=== PATIENT | male | born 2000 | race Caucasian/White ===

== ENCOUNTER 2023-09-11 12:43 | Outpatient (OUT) | payer BC, SELFPAY ==
[2023-09-11 13:19] LABS: Basophils Absolute Auto 0.1 10^3/uL (0.0-0.1); Basophils Percent Auto 1.2 % (0.2-2.0); Eosinophils Absolute Auto 0.1 10^3/uL (0.0-0.7); Eosinophils Percent Auto 1.3 % (0.9-7.0); Hematocrit 46.9 % (42.0-54.0); Hemoglobin 15.5 g/dL (14.0-18.0); Immature Granulocytes Abs Auto 0.02 10^3/uL (0.00-0.03); Immature Granulocytes Pct Auto 0.3 % (0.0-0.5); Lymphocytes Absolute Auto 2.4 10^3/uL (1.2-3.8); Lymphocytes Percent Auto 31.2 % (20.5-60.0); Mean Corpuscular Hemoglobin 28.5 pg (25.9-34.0); Mean Corpuscular Volume 86.4 fL (80.0-94.0); Mean Platelet Volume 12.2 fL (9.5-13.5); Monocytes Absolute Auto 0.5 10^3/uL (0.3-0.8); Neutrophils Absolute Auto 4.6 10^3/uL (1.4-6.5); Platelet Count 185 10^3/uL (150-450); Red Blood Count 5.43 10^6/uL (4.70-6.10); Red Cell Distribution Width 12.6 % (11.0-15.0); White Blood Count 7.7 10^3/uL (4.0-11.0)
[2023-09-11 13:43] LABS: Alanine Aminotransferase 26 U/L (16-63); Albumin Globulin Ratio 1.2; Alkaline Phosphatase 78 U/L (46-116); Anion Gap 14.7; Aspartate Amino Transferase 20 U/L (15-37); BUN Creatinine Ratio 17.1; Bilirubin Direct 0.1 mg/dL (0.0-0.2); Bilirubin Total 0.4 mg/dL (0.2-1.0); Calcium 8.8 mg/dL (8.5-10.1); Carbon Dioxide 28.3 mmol/L (21.0-32.0); Chloride 103 mmol/L (98-107); Chol HDL Ratio 2.7; Cholesterol 153 mg/dL (<=200); Estimated GFR (African America >60 (>=60); Estimated GFR (Non-African Ame >60 (>=60); Globulin 3.3 g/dL; Glucose 113 mg/dL (74-106); HDL Cholesterol 57 mg/dL (40-60); Sodium 142 mmol/L (136-145); Thyroid Stimulating Hormone 1.208 uIU/mL (0.358-3.740); Total Protein 7.3 g/dL (6.4-8.2); Triglycerides 85 mg/dL (<=150)
[2023-09-11 16:21] LABS: Estimated Average Glucose 103 mg/dL; Glycohemoglobin A1C 5.2 % (4.5-6.2)
[2023-09-12 04:07] LABS: Testosterone 295 ng/dL (264-916)
== END 2023-09-11 12:44 | disposition home or self-care (01) ==
LOC: LAB 12:50
PROVIDERS: Family Provider Physician Assistant; PCP Family Medicine; Visit Provider Family Medicine
DX: Z00.00 Encounter for general adult medical examination without abnormal findings (principal)
CPT/HCPCS: 36415; 80048; 80061; 80076; 83036; 84403; 84443; 85025

== ENCOUNTER 2024-05-03 15:55 | Outpatient (OUT) | payer BC, SELFPAY ==
--- NOTE | 2024-05-03 | XR_ITS ---
[address] [address] Patient Name: JOE CALIXTO MRN: [id number] date: 2000 Sex: M Assigned Patient Location: [facility] Current Patient Location: Accession/Order Number: [id number] Exam Date: 05/03/2024 16:15 Report Date: 05/04/2024 07:59 At the request of: CAM MERINO Procedure: XR clavicle RT PROCEDURE: XR clavicle RT, XR shoulder RT min 2V COMPARISON: None. HISTORY: acute pain of right shoulder FINDINGS: BONES:No fracture, acute abnormality, or significant arthropathy. SOFT TISSUES:Negative. No visible soft tissue swelling. EFFUSION:None visible. OTHER: Negative. XR/XR clavicle RT IMPRESSION: No acute abnormality of the clavicle or shoulder Electronically authenticated by: ASH LYNCH Date: 05/04/2024 07:59
--- NOTE | 2024-05-03 | XR_ITS ---
The [address] [address] Patient Name: JOE CALIXTO MRN: [id number] date: 2000 Sex: M Assigned Patient Location: [facility] Current Patient Location: Accession/Order Number: [id number] Exam Date: 05/03/2024 16:15 Report Date: 05/04/2024 07:59 At the request of: CAM MERINO Procedure: XR shoulder RT min 2V PROCEDURE: XR clavicle RT, XR shoulder RT min 2V COMPARISON: None. HISTORY: acute pain of right shoulder FINDINGS: BONES:No fracture, acute abnormality, or significant arthropathy. SOFT TISSUES:Negative. No visible soft tissue swelling. EFFUSION:None visible. OTHER: Negative. XR/XR shoulder RT min 2V IMPRESSION: No acute abnormality of the clavicle or shoulder Electronically authenticated by: ASH LYNCH Date: 05/04/2024 07:59
== END 2024-05-03 15:56 | disposition home or self-care (01) ==
LOC: RAD 15:59
PROVIDERS: Family Provider Physician Assistant; PCP Family Medicine; Visit Provider Family Medicine
DX: M25.511 Pain in right shoulder (principal)
CPT/HCPCS: 73000; 73030

== ENCOUNTER 2024-10-11 10:19 | Outpatient (OUT) | payer BC, SELFPAY ==
--- NOTE | 2024-10-11 10:24 | CT_ITS ---
[address] [address] Patient Name: JOE CALIXTO MRN: [id number] date: 2000 Sex: M Assigned Patient Location: CT Current Patient Location: Accession/Order Number: [id number] Exam Date: 10/11/2024 10:28 Report Date: 10/12/2024 10:06 At the request of: CAM MERINO Procedure: CT sinus wo con EXAM: CT sinus wo con CLINICAL INDICATION: Chronic Rhinosinusitis COMPARISON: CT head 07/13/2022. TECHNIQUE: Multiple thin axial images were obtained through the paranasal sinuses without the use of IV contrast. Additional coronal and sagittal reformatted images were submitted for evaluation. Dose reduction techniques were achieved by using automated exposure control and/or adjustment of mA and/or kV according to patient size and/or use of iterative reconstruction technique. FINDINGS: Frontal Sinuses: Clear. Frontal Recesses: Clear. Maxillary Sinuses: Clear. Maxillary Infundibula: Clear. Ethmoid Sinuses: Clear. No Alejandra cells. Sphenoid Sinuses: Clear. Sphenoethmoidal Recesses: Clear. Air-fluid levels: None. Periosteal thickening: None. Nasal Passage: Clear. Nasal Septum: Deviated slightly towards the right. Lamina Papyracea: Intact. Ethmoidal Notch: No supraorbital pneumatization of ethmoid air cells above the anterior ethmoidal notch. Temporal Bone: Partially visualized mastoid air cells and middle ear cavities are clear. Orbital Contents: Normal. Soft Tissues: Normal. CT/CT sinus wo con IMPRESSION: 1. Well-aerated paranasal sinuses without evidence of acute or chronic sinusitis. 2. Bilateral ostiomeatal complexes are patent. Electronically authenticated by: JONNA VALVERDE Date: 10/12/2024 10:06
== END 2024-10-11 10:20 | disposition home or self-care (01) ==
LOC: CT 10:20
PROVIDERS: Family Provider Physician Assistant; PCP Family Medicine; Visit Provider Family Medicine
DX: J32.9 Chronic sinusitis, unspecified (principal)
CPT/HCPCS: 70486

== ENCOUNTER 2025-06-02 13:25 | Outpatient (REF) | payer BC, SELFPAY ==
--- OUTSIDE RECORDS SUMMARY | 2025-06-07 13:48 | XMS_ITS | CCD ---
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 Attention deficit disorder without mention of hyperactivity Chronic rhinosinusitis Unspecified sinusitis (chronic) Postural orthostatic tachycardia syndrome Unspecified tachycardia documented in this encounter [facility]* Diagnosis Upper respiratory tract infection, unspecified type- Primary 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 Attention deficit disorder without mention of hyperactivity Chronic rhinosinusitis Unspecified sinusitis (chronic) Postural orthostatic tachycardia syndrome Unspecified tachycardia documented in this encounter [facility]* Diagnosis ADD (attention deficit disorder) without hyperactivity Attention deficit disorder without mention of hyperactivity documented in this encounter [facility]* Diagnosis ADD (attention deficit disorder) without hyperactivity Attention deficit disorder without mention of hyperactivity documented in this encounter [facility]* Diagnosis 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 Attention deficit disorder without mention of hyperactivity documented in this encounter [facility]* Diagnosis ADD (attention deficit disorder) without hyperactivity Attention deficit disorder without mention of hyperactivity documented [facility] encounter [facility]* Diagnosis 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 Attention deficit disorder without mention of hyperactivity Chronic rhinosinusitis Unspecified sinusitis (chronic) Postural orthostatic tachycardia syndrome Unspecified tachycardia Upper respiratory tract infection, unspecified type- Primary documented [facility]* Diagnosis 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 Attention deficit disorder without mention of hyperactivity Chronic rhinosinusitis Unspecified sinusitis (chronic) Postural orthostatic tachycardia syndrome Unspecified tachycardia ADD (attention deficit disorder) without hyperactivity Attention deficit disorder without mention of hyperactivity [facility]* Diagnosis 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 Attention deficit disorder without mention of hyperactivity Chronic rhinosinusitis Unspecified sinusitis (chronic) Postural orthostatic tachycardia syndrome Unspecified tachycardia Nasal obstruction- Primary Other diseases of nasal cavity and sinuses documented [facility]* Diagnosis 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 Attention deficit disorder without mention of hyperactivity Chronic rhinosinusitis Unspecified sinusitis (chronic) Postural orthostatic tachycardia syndrome Unspecified tachycardia Inflamed seborrheic keratosis- Primary ADD (attention deficit disorder) without hyperactivity Attention deficit disorder without mention of hyperactivity [facility]* Diagnosis 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 Attention deficit disorder without mention of hyperactivity Chronic rhinosinusitis Unspecified sinusitis (chronic) Postural orthostatic tachycardia syndrome Unspecified tachycardia Inflamed seborrheic keratosis- Primary ADD (attention deficit disorder) without hyperactivity Attention deficit disorder without mention of hyperactivity ADD (attention deficit disorder) without hyperactivity Attention deficit disorder without mention of hyperactivity [facility]* Diagnosis 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 Attention deficit disorder without mention of hyperactivity Chronic rhinosinusitis Unspecified sinusitis (chronic) Postural orthostatic tachycardia syndrome Unspecified tachycardia Inflamed seborrheic keratosis- Primary ADD (attention deficit disorder) without hyperactivity Attention deficit disorder without mention of hyperactivity ADD (attention deficit disorder) without hyperactivity Attention deficit disorder without mention of hyperactivity [facility]* Diagnosis 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 Attention deficit disorder without mention of hyperactivity Chronic rhinosinusitis Unspecified sinusitis (chronic) Postural orthostatic tachycardia syndrome Unspecified tachycardia Inflamed seborrheic keratosis- Primary ADD (attention deficit disorder) without hyperactivity Attention deficit disorder without mention of hyperactivity Neoplasm of uncertain behavior of skin- Primary documented in this encounter [facility]Evaluation noteNo assessment information availableMercy Health Anderson Hospital Work Phone: History general Narrative - Reported* Type Description Date Medical History syncope [facility] Other Reason for referral (narrative)No reason for referral information availableMercy Health Anderson Hospital Work Phone: Summary Purpose Family History No Family History Records Found Relationship Condition Age at Onset Recorded Date/T liam father Unknown Advance Directives No Advanced Directives Records FoundNo Advanced Directives Records FoundNo Advanced Directives Records FoundNo Advanced Directives Records Found Additional Source Comments (unrecognized sect ion and content) No Status Records FoundNo Status Records FoundNo Status Records FoundNo Status Records Found INFORMATION SOURCE (unrecogn ized section and content) DATE CREATED AUTHOR 11/08/2022 [facility] DATE CREATED AUTHOR AUTHOR'S ORGANIZ ATION 12/25/2022 [facility] DATE CREATED AUTHOR AUTHOR'S ORGANIZ ATION 06/05/2025 [facility] EPIC DATE CREATED AUTHOR AUTHOR'S ORGANIZ ATION 06/05/2025 [facility] REASON FOR VISIT (unrecogniz ed section and content) Reason Comments Follow-up 3 m Reason Onset Date Comments New Pharmacy Listed 07/08/2024 Walter agrawal is Adderall script sent to the [facility] listed on his account, He is living in [place] for a few years and 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 Thanks so much!! Reason Onset Date Comments Med Refill 07/09/2024 Reason Onset Date Comments Med Refill 07/12/2024 Reason Onset Date Comments Med Refill 07/05/2024 Reason Comments Sinusitis 6wk check sinusitis. Doing better. Reason Comments Follow-up mole Reason Onset Date Comments Med Refill 04/18/2025 Reason Onset Date Comments Med Refill 05/10/2025 Reason Comments Follow-up Shave biopsy Care Teams (unrecognized sec tion and content) Electro Mechanical Technologist Relationship Specialty Start Date End Date Nikita Merino MD [address] [place] [address] PCP - [employer] 07/27/23 Nikita Merino MD [address] [place] [address] PCP - General Family Medicine 02/16/24 Electro Mechanical Technologist Relationship Specialty Start Date End Date Nikita Merino MD [address] [place] [address] PCP - [employer] 07/27/23 Nikita Merino MD [address] [place] [address] PCP - General Family Medicine 02/16/24 Electro Mechanical Technologist Relationship Specialty Start Date End Date Nikita Merino MD [address] [place] [address] PCP - [employer] 07/27/23 Nikita Merino MD [address] [place] [address] PCP - General Family Medicine 02/16/24 Electro Mechanical Technologist Relationship Specialty Start Date End Date Nikita Merino MD [address] [place] [address] PCP - [employer] 07/27/23 Nikita Merino MD [address] [place] [address] PCP - General Family Medicine 02/16/24 Electro Mechanical Technologist Relationship Specialty Start Date End Date Nikita Merino MD [address] [place] [address] PCP - [employer] 07/27/23 Nikita Merino MD [address] [place] [address] PCP - General Family Medicine 02/16/24 Electro Mechanical Technologist Relationship Specialty Start Date End Date Nikita Merino MD [address] [place] [address] PCP - [employer] 07/27/23 Nikita Merino MD [address] [place] [address] PCP - General Family Medicine 02/16/24 Electro Mechanical Technologist Relationship Specialty Start Date End Date Nikita Merino MD [address] [place] [address] PCP - [employer] 07/27/23 Nikita Merino MD [address] [place] [address] PCP - General Family Medicine 02/16/24 Electro Mechanical Technologist Relationship Specialty Start Date End Date Nikita Merino MD [address] [place] [address] PCP - [employer] 07/27/23 Nikita Merino MD [address] [place] [address] PCP - General Family Medicine 02/16/24 Electro Mechanical Technologist Relationship Specialty Start Date End Date Nikita Merino MD [address] [place] [address] PCP - [employer] 07/27/23 Nikita Merino MD [address] [place] [address] PCP - General Family Medicine 02/16/24 Electro Mechanical Technologist Relationship Specialty Start Date End Date Nikita Merino MD [address] [place] [address] PCP - [employer] 07/27/23 Nikita Merino MD [address] [place] [address] PCP - General Family Medicine 02/16/24 Electro Mechanical Technologist Relationship Specialty Start Date End Date Nikita Merino MD [address] [place] [address] PCP - General Family Medicine 02/16/24 Electro Mechanical Technologist Relationship Specialty Start Date End Date Nikita Merino MD [address] [place] [address] PCP - General Family Medicine 02/16/24 Electro Mechanical Technologist Relationship Specialty Start Date End Date Nikita Merino MD [address] [place] [address] PCP - General Family Medicine 02/16/24 Electro Mechanical Technologist Relationship Specialty Start Date End Date Nikita Merino MD [address] [place] [address] PCP - General Family Medicine 02/16/24 Team Status: Inactive Member Role Status Dates Nikita Merino MD Attending Provider Active Star t: June 02, 2025 End: June 02, 2025 Goals (unrecognized section and content) Goals may be documented in a n alternate section FOR RECORDS PERTAINING TO PATIENTS WHO ARE OR HAVE BEEN ENROLLED IN A CHEMICAL DEPENDENCY/SUBSTANCEABUSE PROGRAM, SOME INFORMATION MAY BE OMITTED. This clinical summary was aggregated from multiple sources. Caution should be exercised in using it in the provision of clinical care. This summary normalizes information from multiple sources, and as a consequence, information in this document may materially change the coding, format and clinical context of patient data. In addition, data may be omitted in some cases. CLINICAL DECISIONS SHOULD BE BASED ON THE PRIMARY CLINICAL RECORDS. [facility] [employer] provides no warranty or guarantee of the accuracy or completeness of information in this document.
== END 2025-06-02 13:26 | disposition home or self-care (01) ==
LOC: LAB 13:25
PROVIDERS: Family Provider Physician Assistant; PCP Family Medicine; Visit Provider Family Medicine
DX: D22.5 Melanocytic nevi of trunk (principal)
CPT/HCPCS: 88305; 88341; 88342; 88360